=== PATIENT | male | born 1970 | race Caucasian/White ===

== ENCOUNTER 2017-08-14 19:12 | Emergency (ER) ==
[2017-08-14 19:16] VITALS: BP 126/85; TEMP 98
[2017-08-14] MEDS ORDERED: BACTROBAN TP STA (19:17)
[2017-08-14] MEDS ORDERED: VANCOMYCIN 1 GM in SODIUM CHLORIDE 250 ML IV STA (19:18)
--- NOTE | 2017-08-14 20:21 | ED.PDOC ---
General ED Provider: Dr. JUAN CARLOS GONZALEZ-ER Chief Complaint: Finger Pain/Injury Stated Complaint: i cut the finger about 2 weeks ago--now its red and draining Time Seen by Physician: 19:15 Mode of Arrival: Walk-In Information Source: Patient Exam Limitations: No limitations Primary Care Provider: MICHAEL MALONE Nursing and Triage Documentation Reviewed and Agree: Yes Skin Complaint Exam - Skin/Soft Tissue Complaint/Exam Onset/Duration: 2 weeks Symptoms Are: Still present Timing: Constant Initial Severity: Mild Current Severity: Mild Location: left index finger Character: Reports: Redness, Swelling, Raised Aggravating: Reports: None Alleviating: Reports: None Associated Signs and Symptoms: Reports: Drainage, Tenderness, Red streaks. Denies: Fever, Chills, Itching, Bruising, Joint swelling Related History: Reports: Recent trauma Related Surgical History: Reports: None Recent Exposure to Others w/Similar Symptoms: No Skin Findings: Present: Other Joint Tenderness Present: No Differential Diagnoses: Abscess, Cellulitis, Infection Review of Systems - Review Of Systems Constitutional: Reports: No symptoms Eyes: Reports: No symptoms Ears, Nose, Mouth, Throat: Reports: No symptoms Respiratory: Reports: No symptoms Cardiac: Reports: No symptoms GI: Reports: No symptoms : Reports: No symptoms Musculoskeletal: Reports: No symptoms Skin: Reports: Other (left index finger with swelling and redness and drainage at mip joint) Neurological: Reports: No symptoms Endocrine: Reports: No symptoms Hematologic/Lymphatic: Reports: No symptoms All Other Systems: Reviewed and Negative Past Medical History - Past Medical History Previously Healthy: Yes Endocrine: Reports: Unknown Cardiovascular: Reports: Unknown Respiratory: Reports: Unknown Hematological: Reports: Unknown Gastrointestinal: Reports: Unknown Genitourinary: Reports: Unknown Neuro/Psych: Reports: Unknown Musculoskeletal: Reports: Unknown Cancer: Reports: Unknown - Surgical History General Surgical History: Reports: Unknown - Family History Family History: Reports: Unknown - Social History Smoking Status: Current every day smoker Hx Substance Use: No Alcohol Screening: None - Immunizations Tetanus Shot up to Date: Yes Physical Exam - Physical Exam Appearance: Well-appearing, No pain distress, Well-nourished Eyes: DENNY ENT: Ears normal, Nose normal, Oropharynx normal Neck: Supple Respiratory: Airway patent, Breath sounds clear, Breath sounds equal, Respirations nonlabored Cardiovascular: RRR, Pulses normal, No rub, No murmur GI/: Soft, Nontender, No masses, Bowel sounds normal, No Organomegaly Musculoskeletal: Normal strength, ROM intact, No edema, No calf tenderness Skin: Warm, Dry, Normal color Neurological: Sensation intact Psychiatric: Affect appropriate, Mood appropriate Interpretation - Radiology Interpretation Radiology Interpretation By: ED Physician Radiology Results: Negative Critical Care Note - Critical Care Note Total Time (mins): 0 Course - Course Orders, Labs, Meds: Orders Category Date Time Status IV [ED IV/MEDIPORT/POWERPORT] .ONCE EMERGENCY 08/14/17 19:17 Active Wound care [ED WOUND CARE] .ONCE EMERGENCY 08/14/17 19:17 Active WOUND CULTURE Stat LAB 08/14/17 19:19 Ordered 0.9 % Sodium Chloride [Saline Flush] MEDS 08/14/17 19:17 Ordered 1 syr IVF PRN PRN Mupirocin [Bactroban] MEDS 08/14/17 19:17 Discontinued 1 applic TP ONCE STA Vancomycin HCl [Vancomycin] 1 gm MEDS 08/14/17 19:18 Discontinued 0.9 % Sodium Chloride [Sodium Chloride] 250 ml IV ONCE FINGER(S), LEFT MIN 2V Stat RADS 08/14/17 19:17 Taken Medications Generic Name Dose Route Start Last Admin Trade Name Freq PRN Reason Stop Dose Admin Sodium Chloride 1 syr 08/14/17 19:17 Saline Flush IVF PRN PRN To flush IV Discontinued Medications Generic Name Dose Route Start Last Admin Trade Name Freq PRN Reason Stop Dose Admin Vancomycin HCl 1 gm/ Sodium 250 mls @ 250 mls/hr 08/14/17 19:18 08/14/17 19: 32 Chloride IV 08/14/17 20:17 250 mls/hr ONCE STA Administration Mupirocin 1 applic 08/14/17 19:17 08/14/17 19:32 Bactroban TP 08/14/17 19:18 1 applic ONCE STA Administration Vital Signs: Temp Pulse Resp BP Pulse Ox 08/14/17 19:13 98.0 F 106 H 18 126/85 98 Departure - Departure Time of Disposition: 20:22 Disposition: HOME SELF-CARE Discharge Problem: Cellulitis, finger Qualifiers: Laterality: left Qualified Code(s): L03.012 - Cellulitis of left finger Instructions: Cellulitis (ED) Condition: Good Pt referred to PMD for follow-up: Yes Additional Instructions: clindamycin 150mg tid x 7days--f/u tomorrow here for recheck Allergies/Adverse Reactions: Allergies No Known Allergies Allergy (Verified 08/14/17 19:17) Home Medications: Ambulatory Orders 1 [No Reported Medications] 08/14/17 Disposition Discussed With: Patient
--- NOTE | 2017-08-15 07:45 | DI ---
EXAM: Radiographs, left second finger HISTORY: Left second finger swelling and drainage. COMPARISON: None available. TECHNIQUE: Three views. FINDINGS: A 0.3 cm linear radiopaque foreign object is seen within the volar soft tissues at the lev el of the first distal phalanx. Soft tissue swelling seen throughout the second digit. No osseous d estruction identified. No fracture or dislocation identified IMPRESSION: Diffuse soft tissue swelling with 0.3 cm linear radiopaque foreign body as described.
== END 2017-08-14 20:40 | disposition home or self-care (01) ==
LOC: ED 19:12
DX: L03.012 Cellulitis of left finger (principal); F17.210 Nicotine dependence, cigarettes, uncomplicated
CPT/HCPCS: 87070; 87186; 96365; 99283

== ENCOUNTER 2017-08-21 13:27 | Outpatient (CLI) ==
--- NOTE | 2017-08-22 11:35 | MRI ---
EXAM: Lumbar spine MRI without contrast. HISTORY: Spinal stenosis. COMPARISON: Lumbar spine MRI 04/21/2014. TECHNIQUE: Multiplanar, multisequence MR images were acquired lumbar spine without contrast. FINDINGS: Five non-rib bearing lumbar vertebra are present. The lumbar vertebra are normal in heigh t and intrinsic bone marrow signal. There is mild straightening of the usual lumbar lordosis with a trace anterolisthesis of L3 on L4. There is mild disc space narrowing and disc desiccation at L2-3 w ith minor ventral osteophytes. At L3-4 there is osteophytosis with moderate disc space narrowing, en dplate irregularity and extensive reactive fatty marrow changes along the endplates. At L4-5, there is moderate disc space narrowing with mild endplate irregularity, disc desiccation and extensive reac tive marrow changes along the endplates which includes mild bright STIR signal edema along the anteri or endplates and reactive fatty marrow changes along the left lateral and posterior endplates. There are chronic Schmorl's nodes at L3, L4 and L5. These findings have mildly progressed at L4-5 compared to the previous MRI. Conus medullaris ends at T12 and has normal signal intensity. Canal diameter is developmentally narrow. The partially visualized liver, spleen and kidneys are unremarkable. There are no paravertebral mass es. T12-L1: The intervertebral disc is normal. L1-2: The intervertebral disc is normal. L2-3: There is a mild disc bulge with marginal osteophytes and a stable small bilobed central disc p rotrusion and annular tear that effaces the ventral thecal sac. Mild bilateral hypertrophic facet ar thropathy and ligamentum flavum hypertrophy is present. Prominent dorsal epidural fat is present and there is mild spinal stenosis, bilateral lateral recess stenosis where there may be encroachment on the L3 nerve roots and minor right and mild left neural foraminal stenosis. AP diameter of the theca l sac is 8.2 mm. L3-4: There is a diffuse disc osteophyte complex with the disc component larger than the osteophyte component. This effaces the ventral thecal sac and narrows the inferior neural foramina bilaterally with encroachment on both L3 nerves exiting the neural foramina. Mild bilateral facet arthropathy an d ligamentum flavum hypertrophy is present. There is prominent dorsal epidural fat. In this patient with a developmentally narrow canal, there is mild to moderate spinal stenosis, left lateral recess stenosis with possible encroachment on the left L4 nerve roots and mild to moderate right and moderat e left neural foraminal stenosis. AP diameter of the thecal sac is 6.1 mm compared to 5.5 mm previou sly. The thecal sac is less narrow on the present study which may be due to decreased dorsal epidural fat. L4-5: There is a moderate diffuse disc bulge with marginal osteophytes and a small central disc prot rusion that is slightly asymmetric to the left. This effaces the ventral thecal sac and narrows infe rior neural foramina bilaterally. Mild bilateral facet arthropathy and ligamentum flavum hypertrophy is present. There is moderately severe spinal stenosis which has mildly improved compared to previo usly and moderately severe right and mild to moderate left neural foraminal stenosis with encroachmen t on the right L4 nerve. AP diameter of the thecal sac is 4.7 mm compared to 3.5 mm previously. L5-S1: There is a minor disc bulge and a new small central disc protrusion that effaces the ventral thecal sac. Mild bilateral facet arthropathy and ligamentum flavum hypertrophy is present. There is a small thecal sac at this level. AP diameter is 7.1 mm. There is mild bilateral foraminal stenosi s. IMPRESSION: 1. Mild to moderate lumbar degenerative spondylosis which has mildly progressed at L4-5. 2. Mild L2-3, mild to moderate L3-4 and moderately severe L4-5 spinal stenosis. This has slightly i mproved at L3-4 and L4-5 compared to the previous MRI. 3. Multilevel foraminal stenosis. 4. Stable small disc herniations L2-3 and L4-5 and new small central disc herniation L5-S1.
== END 2017-08-21 13:28 | disposition home or self-care (01) ==
LOC: RAD 13:27
PROVIDERS: ATTEND Physician Assistant
DX: M48.061 Spinal stenosis, lumbar region without neurogenic claudication (principal)

== ENCOUNTER 2017-08-22 12:55 | Outpatient (CLI) ==
--- NOTE | 2017-08-23 12:47 | MRI ---
EXAM: Cervical spine MRI without contrast. HISTORY: Neck pain. Previous surgery. COMPARISON: Cervical spine radiographs 03/21/2013 and cervical spine MRI 03/20/2013. TECHNIQUE: Multiplanar, multisequence MR images were acquired of the cervical spine without contrast . FINDINGS: The craniocervical junction is unremarkable. There is intermittent visualization of the c entral canal at C2, C3 and C4. At C5, there is a faint small 3 mm T2 hyperintensity in the dorsal co rd and at C5-6, there is hyperintense T2 signal in the bilateral paracentral dorsal cord from C5-6 to mid C6 and the mid C6 level, there is more focal cystic myelomalacia in the left dorsal cord. This is better shown on the current study due to less compression. There is straightening of the usual cervical lordosis and there is 1 mm retrolisthesis of C3 on C4, 2 mm retrolisthesis of C4 and C5 which is increased compared to previously and the patient has undergo ne ACDF's at C5-6 and C6-7. Metallic artifact is present consistent with anterior screw plate fixati on at these levels. The cervical vertebra are generally normal in height and intrinsic bone marrow s ignal. There is ventral osteophytes with new reactive bright STIR signal edema along the anterior en dplates at C3-4. At C4-5, there is now osteophytosis with disc space narrowing, degenerative endplat e changes of reactive bright STIR signal edema along the anterior endplates. 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 There are no paravertebral masses. Mild adenoid al hypertrophy is present with a few small nasopharyngeal submucosal cysts. Pleuroparenchymal fibrosi s is present in both lung apices and there is an azygos vein in the right lung apex. C2-3: There is a minor posterior disc bulge and ligamentum flavum hypertrophy without central canal stenosis or foraminal stenosis. C3-4: There is a posterior disc osteophyte complex that is asymmetric to the left that mildly indent s the left cervical cord and mildly effaces the left lateral recess. Ligamentum flavum hypertrophy a nd bilateral uncovertebral hypertrophy is present. There is mild spinal stenosis and mild bilateral foraminal stenosis. AP diameter of the thecal sac is 6.9 mm without change. C4-5: There is a posterior disc osteophyte complex and a small right paracentral disc extrusion with inferior migration that mildly indents the cervical cord. Ligamentum flavum hypertrophy and bilater al uncovertebral hypertrophy are present. These findings have progressed compared to previously and causes mild to moderate spinal stenosis and moderate bilateral foraminal stenosis. Detail is limited by decreased [id number]. AP diameter of the thecal sac is 6.5 mm. C5-6: There are postoperative anterior cervical discectomy and interbody fusion changes. Mild right and minor left uncovertebral hypertrophy is present and there is moderate right and mild left neural foraminal stenosis. In this patient with a developmentally narrow canal, there is mild spinal steno sis. AP diameter of the thecal sac is 9 mm. This has improved compared to previously where AP diamet er of the canal was 3.9 mm. C6-7: There are postoperative anterior cervical discectomy and interbody fusion changes. Minor ligam entum flavum hypertrophy and bilateral uncovertebral hypertrophy are present. There is mild spinal s tenosis and mild left foraminal stenosis. AP diameter of the thecal sac is now 8 mm compared to 3.5 mm previously. C7-T1: There is a left posterior disc osteophyte complex and small central disc extrusion with proxi mal migration, ligamentum flavum hypertrophy, minor right uncovertebral hypertrophy and minor bilater al hypertrophic facet arthropathy. The small central disc herniation may be new or better shown on th e current exam due to differences in slice selection. This causes mild spinal stenosis unchanged fro m previously. AP diameter of the thecal sac is 8.3 mm. IMPRESSION: 1. Status post C5-6 and C6-7 ACDF's with marked improvement in the spinal stenosis at these levels. However, there is now better demonstrated myelomalacia in the bilateral paracentral cervical cord fr om C5-6 to mid C6 with more focal cystic myelomalacia in the left dorsal cord at C6. Probably these findings are better shown on the current study due to less cord compression after the cervical spine decompression. 2. Progressive discogenic disease C4-5 with new small right paracentral disc extrusion that causes m ild to moderate spinal stenosis. 3. Moderate discogenic disease C3-4 with a new bright STIR signal edema along the anterior endplates . 4. Stable mild C3-4 and C7-T1 spinal stenosis. 5. Moderate bilateral C4-5 and moderate right C5-6 neural foraminal stenosis.
== END 2017-08-22 12:56 | disposition home or self-care (01) ==
LOC: RAD 12:55
PROVIDERS: ATTEND Physician Assistant
DX: Z98.1 Arthrodesis status (principal)